=== PATIENT | female | born 1965 | race Caucasian/White ===

== ENCOUNTER 2019-07-07 16:39 | Emergency (ER) | payer OTHER, SELFPAY ==
[2019-07-07 16:40] VITALS: BP 134/86; PULSE 86; RESP 16; TEMP 36.6; O2SAT 100; BMI 25.6
--- NOTE | 2019-07-07 17:10 | RAD_ITS ---
STUDY: X-RAY - RIGHT HAND REASON FOR EXAM: Female, 54 years old. CRUSH INJURY TO DISTAL 2ND DIGIT TECHNIQUE: 3 view(s) of the hand. COMPARISON: None. FINDINGS: Normal radiocarpal articulation. Normal distal radioulnar joint. Normal visualized carpal bones. Normal carpal articulations Normal carpometacarpal articulation of the thumb. Normal second through fifth carpometacarpal joints. Normal metacarpi. Normal metacarpophalangeal joint of the thumb. 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 Normal proximal and distal phalanges of the thumb. Normal metacarpophalangeal joints of the second through fifth fingers. Normal proximal and distal interphalangeal joints of the second through fifth fingers. Old hyperflexion avulsion injury at the base of the fifth distal phalanx abutting the DIP joint with smooth sclerotic borders. There are also bony densities adjacent to the third PIP joint suggesting sequela of old injury. There are small bony densities adjacent to the second proximal and distal interphalangeal joints, age indeterminate. The soft tissue structures are unremarkable. RAD/Hand Min 3 Views IMPRESSION: 1. Age indeterminate avulsion fractures of the second and third PIP joints. No displaced fracture is seen. 2. Old appearing fractures of the fifth and third fingers. Electronically Signed: Zohaib Jacobson MD ([facility]) at 17:25 EST , Service support ,
--- NOTE | 2019-07-07 18:05 | ED.DCSUM_ITS ---
History of Present Illness Informant: Patient Occurred: Today Mechanism/Context: Injury Onset: Today Context: Sudden Onset Timing: Continuous Quality of Pain: Sharp Location: right 2nd finger Current Severity: Severe Maximum Severity: Severe Worsened by: movement Relieved by: rest Associated Symptoms: Negative for: Parasthesia, Weakness, Loss of Funtion Narrative: 54-year-old female history of rheumatoid arthritis presents to the emergency department with an injury to the right index finger. This occurred at work just prior to arrival. Her right index finger was crushed by a Jasper. She is having pain and swelling. She denies any other injuries. She is right-hand dominant. She is not on blood thinners. Denies numbness tingling or weakness. Tetanus is less than 5 years Tetanus Immunization: <5 years Prior similar symptoms: No Recent Illness/Hospitalization: No <Paul Leal - Last Filed: 07/07/19 18:05> <Ariel Nesbitt - Last Filed: 07/07/19 19:23> Chief Complaint: Upper Extremity Injury Past Medical History Prior records reviewed: Yes Past Medical History: - - Rheumatoid arthritis Surgical History: no surgical history Lives: With Family Smoking Status: Former smoker Alcohol: Occasional <Paul Leal - Last Filed: 07/07/19 18:05> <Ariel Nesbitt - Last Filed: 07/07/19 19:23> - Allergies and Home Meds Allergies/Adverse Reactions: Allergies No Known Allergies Allergy (Verified 07/07/19 16:40) Primary Care Physician: [facility] [NON-STAFF] - As soon as possible Review of Systems All systems negative except as indicated General: Denies: Chills, Fever Eyes: Denies: Visual changes - bilaterally, Blurred Vision - bilaterally, Diplopia ENT: Denies: Rhinorrhea, Sore throat Cardiovascular: Denies: Chest pain, Palpitations Respiratory: Denies: Dyspnea, Cough Gastrointestinal: Denies: Nausea, Vomiting, Diarrhea Genitourinary: Denies: Dysuria, Hematuria, Frequency Musculoskeletal: Reports: Swelling, Extremity Pain Skin: Reports: Abrasions. Denies: Rash, Abscess, Wounds Neurological: Denies: Weakness, Parasthesia, Numbness <Paul Leal - Last Filed: 07/07/19 18:05> Physical Exam Vital Signs/Narrative: Vital Signs Temp Pulse Resp BP Pulse Ox 07/07/19 16:40 97.8 F 86 16 134/86 H 100 Inital Vital Signs reviewed: Yes Right Finger: Abrasion, Contusion, Edema, - - Patient has an abrasion and contusion with swelling and bruising over the right index finger dorsally proximal to the nail between the PIP joint and the DIP joint. The skin is intact. There is no subungual hematoma. She has normal capillary refill and sensation. She is able to fully flex and extend actively at the MCP, PIP and DIP joints but it is painful for her. There are no other injuries of the hand. General: Well nourished, Well developed Head: Normocephalic, Atraumatic Eyes: Perrl, EOMI ENT: No Trauma, Moist Mucous Membranes Neck: Nontender, Full ROM Cardiovascular: Regular rate, Regular rhythm, No murmurs Respiratory: No distress, CTA bilaterally, Chest nontender Back: Nontender Skin: Normal color, No rash, Trauma Neurological: Alert, Oriented x3 Psychological: Normal affect, Normal Mood <Paul Leal - Last Filed: 07/07/19 18:05> Vital Signs/Narrative: Vital Signs Temp Pulse Resp BP Pulse Ox 07/07/19 16:40 97.8 F 86 16 134/86 H 100 <Ariel Nesbitt - Last Filed: 07/07/19 19:23> Diagnostic/Tx/Re-eval - Medical Decision Making Patient has an acute fracture of the DIP joint right index finger and seen on x- ray that was read by the radiologist as well as independently read by the emergency physician. Again the patient is neurovascularly intact. The skin is intact. There is no open fracture. There is no subungual hematoma. Patient takes chronic tramadol for her rheumatoid arthritis. She will use this for her pain. She was placed in an AlumaFoam finger splint. This was a work related injury therefore she was given work restrictions and she will follow-up with the [facility] clinic. She was advised to rest ice and elevate. She was agreeable with plan all questions were answered and she was given return precautions. 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 Agree with plan work-up. Performed on [id number] evaluation. Crush injury right index at work. This occurred today. No other injuries. Bruising to the base of the nail with no nail involvement. X-ray reviewed concerns for distal phalanx avulsion fracture. This is closed. AlumaFoam splint, work restrictions were given. She does have tramadol at home for which he takes and followed by her doctor. She is given follow-up with occupational health. <Ariel Nesbitt - Last Filed: 07/07/19 19:23> ED Disposition <Paul Leal - Last Filed: 07/07/19 18:05> <Ariel Nesbitt - Last Filed: 07/07/19 19:23> - Plan for ED Patient: Disposition: Home or Assisted Living Diagnosis: Fracture of phalanx of finger of right hand Instructions: FRACTURE, Finger (Closed) Referrals: [facility] [NON-STAFF] - As soon as possible
== END 2019-07-07 18:41 | disposition home or self-care (01) ==
PROVIDERS: Emergency Provider Physician Assistant Medical
DX: S62.630A Displaced fracture of distal phalanx of right index finger, initial encounter for closed fracture (principal); M06.9 Rheumatoid arthritis, unspecified; Z87.891 Personal history of nicotine dependence; Z79.891 Long term (current) use of opiate analgesic; W23.1XXA Caught, crushed, jammed, or pinched between stationary objects, initial encounter; Y93.89 Activity, other specified; Y92.89 Other specified places as the place of occurrence of the external cause; Y99.0 Civilian activity done for income or pay
CPT/HCPCS: 73130; 99283

== ENCOUNTER → 2019-08-06 | Outpatient (CLI) | payer OTHER, SELFPAY ==
[2019-08-06 08:07] VITALS: BMI 25.6
--- NOTE | 2019-08-06 08:13 | RAD_ITS ---
STUDY: X-RAY - RIGHT HAND, ATTENTION INDEX FINGER REASON FOR EXAM: Female, 54 years old. INJURY TO DISTAL FINGER X 1 MONTH TECHNIQUE: 3 view(s) of the finger were obtained. COMPARISON: Comparison is made with prior examination dated July 07, 2019. FINDINGS: Normal metacarpal head. Normal metacarpophalangeal joint. Normal proximal phalanx. Stable appearance of the tiny bony densities adjacent to the base of the middle phalanx of the index finger. This may represent an avulsion fracture. Normal proximal interphalangeal joint. Normal distal interphalangeal joint. RAD/Finger(s) Min 2 Views IMPRESSION: Stable appearance of a tiny bony density adjacent to the base of the middle thanks of the index finger as described. This may represent an old avulsion injury. Electronically Signed: Gera Tan, at 8:31 EDT , Service support ,
== END | disposition home or self-care (01) ==
LOC: HPRAD 08:13
PROVIDERS: Referring Provider Physician Assistant; Visit Provider Physician Assistant
DX: S62.600A Fracture of unspecified phalanx of right index finger, initial encounter for closed fracture (principal)
CPT/HCPCS: 73140